=== PATIENT | male | born 1990 | race Two or more races ===

== ENCOUNTER 2021-11-12 08:30 | Emergency (ER) | payer OTHER, BC ==
[2021-11-12 08:34] VITALS: BP 135/84
--- NOTE | 2021-11-12 08:34 | ED Physician Documentation ---
PD HPI HEAD INJURY - Stated complaint Stated Complaint: HEAD LAC - History obtained from History obtained from: Patient - History of Present Illness Mechanism of head injury: Blow (struck top of head on cabinet edge when stood up, causing lac that is still bleeding mildly.) Where head injury occurred: Work Timing - onset: Today (just few minutes ago) Location of injury: Top Associated symptoms: No: LOC, AMS, Nausea / vomiting, Neck pain Symptoms worsen with: Palpation Similar symptoms before: Has not had sx before Recently seen: Not recently seen Review of Systems Eyes: denies: Decreased vision Neurologic: denies: Generalized weakness, Focal weakness, Altered mental status PD PAST MEDICAL HISTORY - Past Medical History Past Medical History: No - Allergies Allergies/Adverse Reactions: Allergies Allergy/AdvReac Type Severity Reaction Status Date / Time No Known Drug Allergies Allergy Verified 11/12/21 08:34 PD ED PE NORMAL - Vitals Vital signs reviewed: Yes - General General: Alert and oriented X 3, No acute distress, Well developed/nourished - HEENT HEENT: PERRL, EOMI, Other (top of scalp with 2 cm laceration to fatty tissue. Mild bleeding. Edges crisp. No FB. ) - Neck Neck: Supple, no meningeal sign, No bony TTP - Neuro Neuro: Alert and oriented X 3, No motor deficit, Normal speech Results - Vitals Vitals: Oxygen O2 Source Room air Procedures - Laceration (location) vertex scalp Length in cm: 2 Wound type: Linear, Into subcut fat, Clean Anesthesia: Lidocaine 1% with epi Wound preparation: Irrigated copiously NS Skin layer closure: [place], Interrupted Other: Patient tolerated well, No complications, Neurovascular intact, Tetanus UTD Departure - Departure Disposition: 01 Home, Self Care Clinical Impression: Scalp laceration Qualifiers: Encounter type: initial encounter Qualified Code(s): S01.01XA - Laceration without foreign body of scalp, initial encounter Condition: Stable Record reviewed to determine appropriate education?: Yes Instructions: ED Laceration Scalp Stitch Or Stap Comments: It is okay to wash and shower. Clean off the wound twice a day with soap and water, or peroxide and water. Apply some antibiotic ointment to it to keep it moist. Also to watch for signs of infection such as purulence, redness or increasing pain. Return to your primary care or the ER at the specified time for suture removal. Staple removal 7 to 8 days. Tylenol o Ibuprofen if needed for pains. Discharge Date/Time: 11/12/21 08:59
[2021-11-12] MEDS ORDERED: LIDOCAINE 1%-EPI 1:100000 20 ML MDV SUBQ STA (08:35)
== END 2021-11-12 08:59 | disposition home or self-care (01) ==
LOC: ED 08:30
DX: S01.01XA Laceration without foreign body of scalp, initial encounter (principal); W22.03XA Walked into furniture, initial encounter
CPT/HCPCS: 1040M; 12001; 99281

== ENCOUNTER 2021-11-21 14:14 | Emergency (ER) | payer OTHER, BC ==
[2021-11-21 14:23] VITALS: BP 123/65
--- NOTE | 2021-11-21 14:38 | ED Physician Documentation ---
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 He lacerated the top of his head 10 days ago on an ambulance call and had dale placed. He is here today for staple removal without complaints Review of Systems Constitutional: denies: Fever Ears: denies: Ear pain Throat: denies: Sore throat Respiratory: denies: Cough PD PAST MEDICAL HISTORY - Allergies Allergies/Adverse Reactions: Allergies Allergy/AdvReac Type Severity Reaction Status Date / Time No Known Drug Allergies Allergy Verified 11/21/21 14:24 PD ED PE NORMAL - Vitals Vital signs reviewed: Yes (normal) - General General: Alert and oriented X 3, No acute distress, Well developed/nourished - HEENT HEENT: PERRL, EOMI, Other ([address] to a 2 and half centimeter laceration to the vertex on the left side) - Neck Neck: Supple, no meningeal sign, No bony TTP - Respiratory Respiratory: No respiratory distress - Derm Derm: Normal color, Warm and dry, No rash - Extremities Extremities: No deformity, No edema - Neuro Neuro: Alert and oriented X 3, 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, No motor deficit, No sensory deficit, Normal speech Eye Opening: Spontaneous Motor: Obeys Commands Verbal: Oriented GCS Score: 15 - Psych Psych: Normal mood, Normal affect Results - Vitals Vitals: Vital Signs - 24 hr 11/21/21 14:20 Temperature 35.9 C L Heart Rate 67 Respiratory 16 Rate Blood Pressure 123/65 O2 Saturation 98 Oxygen O2 Source Room air Procedures - Suture/staple Removal (location) scalp Suture/staple removal: # dale (5) PD MEDICAL DECISION MAKING - ED course Complexity details: considered differential, d/w patient ED course: 5 dale removed without incident Departure - Departure Disposition: 01 Home, Self Care Clinical Impression: Encounter for staple removal Condition: Stable Instructions: ED Stap Removal No Complication Follow-Up: Your, doctor as needed [Other] Discharge Date/Time: 11/21/21 14:50
== END 2021-11-21 14:50 | disposition home or self-care (01) ==
LOC: ED 14:14
DX: S01.01XD Laceration without foreign body of scalp, subsequent encounter (principal); X58.XXXD Exposure to other specified factors, subsequent encounter
CPT/HCPCS: 99281